=== PATIENT | male | born 1995 | race Caucasian/White ===

== ENCOUNTER 2017-07-24 17:20 | Emergency (ER) | payer SELFPAY ==
[~2017-07-24] VITALS: Ht 167.6 cm; Wt 82.0 kg
[2017-07-25 04:34] VITALS: BP 120/75
== END 2017-07-25 04:50 | disposition home or self-care (01) ==
LOC: ER 18:11
DX: R07.81 Pleurodynia (principal); R03.0 Elevated blood-pressure reading, without diagnosis of hypertension; F15.10 Other stimulant abuse, uncomplicated; J45.909 Unspecified asthma, uncomplicated; F41.9 Anxiety disorder, unspecified; F12.10 Cannabis abuse, uncomplicated
CPT/HCPCS: 71010; 93005; 99284; Z7610

== ENCOUNTER 2020-03-21 20:26 | Emergency (ER) | payer SELFPAY ==
[~2020-03-21] VITALS: Ht 167.6 cm; Wt 95.0 kg
[2020-03-21] MEDS ORDERED: SODIUM CHLORIDE 0.9% 1,000 ML IV ONE (21:51)
[2020-03-21] MEDS ORDERED: ONDANSETRON HCL 4MG/2ML INJ IV ONE (22:00)
[2020-03-21 22:50] LABS: BASOPHILS % 0.7 % (0.0-2.0); EOSINOPHILS % 0.2 % (0.0-5.0); HEMATOCRIT. 45.9 % (42.0-52.0); HEMOGLOBIN. 15.9 g/dL (14.0-18.0); LYMPHOCYTES % 20.7 % (20.0-50.0); MEAN CORPUSCULAR HEMOGLOBIN 30.7 pg (28.0-32.0); MEAN CORPUSCULAR VOLUME 88.6 fL (80.0-94.0); MEAN PLATELET VOLUME 8.1 fl (7.4-10.4); MONOCYTES % 8.4 % (2.0-8.0); PLATELET 245 x1000/uL (130-400); RED BLOOD CELL COUNT 5.17 mill/uL (4.7-6.1); RED CELL DISTRIBUTION WIDTH 13.3 % (11.6-14.6)
[2020-03-21 22:54] LABS: CHLORIDE 106 mEq/L (98-107)
[2020-03-21 23:44] VITALS: BP 125/74
== END 2020-03-21 23:45 | disposition home or self-care (01) ==
LOC: ER 20:26
DX: T67.5XXA Heat exhaustion, unspecified, initial encounter (principal); Z90.49 Acquired absence of other specified parts of digestive tract; X58.XXXA Exposure to other specified factors, initial encounter; Y93.89 Activity, other specified; Y92.89 Other specified places as the place of occurrence of the external cause
CPT/HCPCS: 36415; 80053; 85025; 93005; 96361; 96374; 99284; J2405; J7030

== ENCOUNTER 2020-05-19 11:38 | Emergency (ER) | payer MEDICAID ==
[~2020-05-19] VITALS: Ht 167.6 cm; Wt 95.0 kg
[2020-05-19] MEDS ORDERED: IBUPROFEN 600MG TABLET PO ONE (12:15)
[2020-05-19] MEDS ORDERED: ONDANSETRON 4MG ODT PO ONE (12:15)
[2020-05-19 13:08] VITALS: BP 122/86
== END 2020-05-19 14:56 | disposition home or self-care (01) ==
LOC: ER 11:38
DX: J45.909 Unspecified asthma, uncomplicated (principal); Z90.49 Acquired absence of other specified parts of digestive tract; F12.10 Cannabis abuse, uncomplicated; J06.9 Acute upper respiratory infection, unspecified; Z20.828 Contact with and (suspected) exposure to other viral communicable diseases
CPT/HCPCS: 71045; 87070; 87430; 93005; 99285; C9803; U0003

== ENCOUNTER 2020-05-23 20:10 | Emergency (ER) | payer MEDICAID ==
[~2020-05-23] VITALS: Ht 167.6 cm; Wt 95.0 kg
[2020-05-23] MEDS ORDERED: ALBUTEROL (0.083%) 2.5MG/3ML NEB HHN STA (20:43)
[2020-05-23] MEDS ORDERED: IPRATROPIUM BROMIDE (0.02%) 0.5MG/2.5ML NEB HHN STA (20:43)
[2020-05-23] MEDS ORDERED: PREDNISONE 20MG TABLET PO STA (20:43)
[2020-05-23 22:30] VITALS: BP 124/85
== END 2020-05-23 22:35 | disposition home or self-care (01) ==
LOC: ER 20:25
DX: J45.901 Unspecified asthma with (acute) exacerbation (principal); F12.10 Cannabis abuse, uncomplicated
CPT/HCPCS: 94640; 99283; J7512; Z7610

== ENCOUNTER 2020-08-22 21:49 | Emergency (ER) | payer MEDICAID ==
[~2020-08-22] VITALS: Ht 167.6 cm; Wt 95.0 kg
[2020-08-22] MEDS ORDERED: ONDANSETRON HCL 4MG/2ML INJ IV STA (22:41)
[2020-08-22] MEDS ORDERED: KETOROLAC 30MG/ML VIAL IV STA (22:41)
[2020-08-22] MEDS ORDERED: ACETAMINOPHEN 325MG TABLET PO STA (22:41)
[2020-08-22] MEDS ORDERED: SODIUM CHLORIDE 0.9% 1,000 ML IV ONE (22:45)
[2020-08-22 23:25] LABS: CHLORIDE 105 mEq/L (98-107)
[2020-08-22 23:35] LABS: HEMATOCRIT. 43.1 % (42.0-52.0); HEMOGLOBIN. 15.1 g/dL (14.0-18.0); MEAN CORPUSCULAR HEMOGLOBIN 30.4 pg (28.0-32.0); MEAN CORPUSCULAR VOLUME 86.5 fL (80.0-94.0); MEAN PLATELET VOLUME 8.3 fl (7.4-10.4); PLATELET 212 x1000/uL (130-400); RED BLOOD CELL COUNT 4.98 mill/uL (4.7-6.1); RED CELL DISTRIBUTION WIDTH 13.2 % (11.6-14.6)
[2020-08-23 00:14] LABS: PLATELET ESTIMATE NORMAL
[2020-08-23] MEDS ORDERED: ONDA4TAB11 PO (00:42)
[2020-08-23 01:04] VITALS: BP 123/77
== END 2020-08-23 01:05 | disposition home or self-care (01) ==
LOC: ER 21:49
DX: B34.9 Viral infection, unspecified (principal); Z20.822 Contact with and (suspected) exposure to COVID-19; F12.10 Cannabis abuse, uncomplicated; Z90.49 Acquired absence of other specified parts of digestive tract
CPT/HCPCS: 36415; 71045; 80053; 85025; 93005; 96361; 96374; 96375; 99284; C9803; J1885; J2405; J7030; U0003

== ENCOUNTER 2020-09-07 14:25 | Emergency (ER) | payer MEDICAID ==
[~2020-09-07] VITALS: Ht 167.6 cm; Wt 95.5 kg
[~2020-09-07 14:25] MED LIST: ONDA4TAB11 PO
[2020-09-07] MEDS ORDERED: IBUPROFEN 600MG TABLET PO NR (15:30)
[2020-09-07] MEDS ORDERED: IBUP-2029 MT (15:32)
[2020-09-07 15:40] VITALS: BP 132/70
== END 2020-09-07 15:41 | disposition home or self-care (01) ==
LOC: ER 14:34
DX: U07.1 COVID-19 (principal); G93.3 Postviral and related fatigue syndromes; R03.0 Elevated blood-pressure reading, without diagnosis of hypertension; F12.90 Cannabis use, unspecified, uncomplicated
CPT/HCPCS: 71045; 87635; 99283

== ENCOUNTER 2020-09-19 16:55 | Emergency (ER) | payer MEDICAID ==
[~2020-09-19] VITALS: Ht 167.6 cm; Wt 70.0 kg
[~2020-09-19 16:55] MED LIST changes: +IBUP-2029 MT
[2020-09-19 16:58] VITALS: BP 122/84
[2020-09-19] MEDS ORDERED: ALBU18HF2 IH (17:16)
== END 2020-09-19 17:23 | disposition home or self-care (01) ==
LOC: ER 17:07
DX: J45.901 Unspecified asthma with (acute) exacerbation (principal); Z86.19 Personal history of other infectious and parasitic diseases; F12.10 Cannabis abuse, uncomplicated
CPT/HCPCS: 99282

== ENCOUNTER 2020-11-04 09:41 | Emergency (ER) | payer SELFPAY ==
[~2020-11-04] VITALS: Ht 167.6 cm; Wt 96.0 kg
[~2020-11-04 09:41] MED LIST changes: +ALBU18HF2 IH
[2020-11-04] MEDS ORDERED: METOCLOPRAMIDE HCL 10MG/2ML VIAL IV ONE (10:45)
[2020-11-04] MEDS ORDERED: SODIUM CHLORIDE 0.9% 1,000 ML IV ONE (10:45)
[2020-11-04 10:50] LABS: BASOPHILS % 0.3 % (0.0-2.0); EOSINOPHILS % 1.5 % (0.0-5.0); HEMATOCRIT. 48.9 % (42.0-52.0); HEMOGLOBIN. 17.1 g/dL (14.0-18.0); LYMPHOCYTES % 37.7 % (20.0-50.0); MEAN CORPUSCULAR HEMOGLOBIN 30.1 pg (28.0-32.0); MEAN CORPUSCULAR VOLUME 86.1 fL (80.0-94.0); MONOCYTES % 13.6 % (2.0-8.0); NEUTROPHILS % 46.9 % (40.0-76.0); PLATELET 254 x1000/uL (130-400); RED BLOOD CELL COUNT 5.68 mill/uL (4.7-6.1); RED CELL DISTRIBUTION WIDTH 13.3 % (11.6-14.6)
[2020-11-04 10:57] LABS: CHLORIDE 101 mEq/L (98-107)
[2020-11-04 11:00] LABS: ETHANOL BLOOD < 10 mg/dL
[2020-11-04 12:08] LABS: COLOR URINE YELLOW (YELLOW); KETONES URINE 1+ (NEGATIVE); LEUKOCYTE ESTERASE URINE NEGATIVE (NEGATIVE); NITRITE URINE NEGATIVE (NEGATIVE); OCCULT BLOOD URINE NEGATIVE (NEGATIVE); PROTEIN URINE NEGATIVE (NEGATIVE); SPECIFIC GRAVITY URINE 1.012 (1.005-1.030); UROBILINOGEN URINE 0.2 E.U./dL (0.2-1.0)
[2020-11-04 12:09] LABS: CLARITY URINE CLEAR (CLEAR)
[2020-11-04 12:30] LABS: *AMPHETAMINES SCREEN URINE PRESUMTIVE POSITIVE (NEGATIVE); *BARBITURATES SCREEN URINE NEGATIVE (NEGATIVE); *BENZODIAZEPINES SCREEN URINE NEGATIVE (NEGATIVE)
[2020-11-04 12:31] LABS: *COCAINE SCREEN URINE NEGATIVE (NEGATIVE); CANNABINOID URINE SCREEN PRESUMTIVE POSITIVE (NEGATIVE); METHADONE URINE SCREEN NEGATIVE (NEGATIVE); OPIATES URINE SCREEN NEGATIVE (NEGATIVE); PHENCYCLIDINE URINE SCREEN NEGATIVE (NEGATIVE)
[2020-11-04 13:57] VITALS: BP 136/81
== END 2020-11-04 14:21 | disposition home or self-care (01) ==
LOC: ER 09:41
DX: R07.89 Other chest pain (principal); R00.2 Palpitations; R42 Dizziness and giddiness; F15.10 Other stimulant abuse, uncomplicated; F12.10 Cannabis abuse, uncomplicated; J45.909 Unspecified asthma, uncomplicated
CPT/HCPCS: 36415; 71045; 80053; 80305; 80307; 80320; 80329; 81003; 83880; 84484; 85025; 93005; 96361; 96374; 99285; J2765; J7030; G0480

== ENCOUNTER 2021-01-22 13:40 | Emergency (ER) | payer SELFPAY ==
[~2021-01-22] VITALS: Ht 167.6 cm; Wt 89.0 kg
[2021-01-22 14:12] VITALS: BP 123/65
== END 2021-01-22 14:34 | disposition home or self-care (01) ==
LOC: ER 13:40
DX: R51.9 Headache, unspecified (principal); F12.10 Cannabis abuse, uncomplicated; J45.909 Unspecified asthma, uncomplicated; Z90.49 Acquired absence of other specified parts of digestive tract
CPT/HCPCS: 99281

== ENCOUNTER 2021-03-01 20:52 | Emergency (ER) | payer SELFPAY ==
[~2021-03-01] VITALS: Ht 167.6 cm; Wt 86.0 kg
[2021-03-02] MEDS ORDERED: ALBU6.7H9 INH (00:54)
[2021-03-02 01:05] VITALS: BP 130/87
== END 2021-03-02 01:09 | disposition home or self-care (01) ==
LOC: ER 20:52
DX: U07.1 COVID-19 (principal); R07.89 Other chest pain; J45.909 Unspecified asthma, uncomplicated; F12.10 Cannabis abuse, uncomplicated
CPT/HCPCS: 71045; 93005; 99283

== ENCOUNTER 2021-03-05 14:16 | Emergency (ER) | payer SELFPAY ==
[~2021-03-05] VITALS: Ht 167.6 cm; Wt 88.0 kg
[~2021-03-05 14:16] MED LIST changes: +ALBU6.7H9 INH
[2021-03-05 14:20] VITALS: BP 119/73
[2021-03-05] MEDS ORDERED: ALBUTEROL 6.7GM HFA INHALER ORI ONE (15:00)
== END 2021-03-05 16:05 | disposition home or self-care (01) ==
LOC: ER 14:16
DX: R05 Cough (principal); J45.909 Unspecified asthma, uncomplicated; F12.10 Cannabis abuse, uncomplicated; Z79.899 Other long term (current) drug therapy
CPT/HCPCS: 71045; 99283

== ENCOUNTER 2021-04-19 21:36 | Emergency (ER) | payer SELFPAY | END 2021-04-19 22:43 | disposition left against medical advice (07) | LOC: ER 21:36 | DX: Z53.21 Procedure and treatment not carried out due to patient leaving prior to being seen by health care provider (principal) ==

== ENCOUNTER 2021-08-16 09:56 | Emergency (ER) | payer SELFPAY ==
[~2021-08-16] VITALS: Ht 167.6 cm; Wt 93.9 kg
[2021-08-16] MEDS ORDERED: ONDANSETRON 4MG ODT PO STA (10:21)
[2021-08-16 11:22] LABS: BASOPHILS % 0.2 % (0.0-2.0); EOSINOPHILS % 0.9 % (0.0-5.0); HEMATOCRIT. 46.9 % (42.0-52.0); HEMOGLOBIN. 16.5 g/dL (14.0-18.0); LYMPHOCYTES % 19.6 % (20.0-50.0); MEAN CORPUSCULAR HEMOGLOBIN 30.5 pg (28.0-32.0); MEAN CORPUSCULAR VOLUME 86.7 fL (80.0-94.0); MEAN PLATELET VOLUME 7.8 fl (7.4-10.4); MONOCYTES % 9.2 % (2.0-8.0); NEUTROPHILS % 70.1 % (40.0-76.0); PLATELET 274 x1000/uL (130-400); RED CELL DISTRIBUTION WIDTH 13.4 % (11.6-14.6)
[2021-08-16] MEDS ORDERED: ONDA4TAB5 PO (11:22)
[2021-08-16 11:23] LABS: CHLORIDE 105 mEq/L (98-107)
[2021-08-16] MEDS ORDERED: TOPUD PO (11:24)
[2021-08-16 11:51] VITALS: BP 110/74
== END 2021-08-16 12:13 | disposition home or self-care (01) ==
LOC: ER 09:56
DX: R50.9 Fever, unspecified (principal); R11.2 Nausea with vomiting, unspecified; Z20.822 Contact with and (suspected) exposure to COVID-19; R10.84 Generalized abdominal pain
CPT/HCPCS: 36415; 80053; 83690; 85025; 87426; 99283; Q0162

== ENCOUNTER 2021-10-25 06:33 | Emergency (ER) | payer SELFPAY ==
[~2021-10-25] VITALS: Ht 167.6 cm; Wt 92.0 kg
[~2021-10-25 06:33] MED LIST changes: +ONDA4TAB5 PO; +TOPUD PO
[2021-10-25] MEDS ORDERED: ONDANSETRON HCL 4MG/2ML INJ IV STA (07:23)
[2021-10-25] MEDS ORDERED: MORPHINE SULFATE 4 MG/ML CPJ (NOT FOR IM USE) IV ONE (07:30)
[2021-10-25] MEDS ORDERED: SODIUM CHLORIDE 0.9% 1,000 ML IV ONE (07:30)
[2021-10-25 07:51] VITALS: BP 116/78
[2021-10-25 08:08] LABS: BASOPHILS % 0.3 % (0.0-2.0); EOSINOPHILS % 0.5 % (0.0-5.0); HEMATOCRIT. 49.4 % (42.0-52.0); LYMPHOCYTES % 16.8 % (20.0-50.0); MEAN CORPUSCULAR HEMOGLOBIN 30.3 pg (28.0-32.0); MEAN CORPUSCULAR VOLUME 88.1 fL (80.0-94.0); MEAN PLATELET VOLUME 8.2 fl (7.4-10.4); MONOCYTES % 10.5 % (2.0-8.0); NEUTROPHILS % 71.9 % (40.0-76.0); PLATELET 258 x1000/uL (130-400); RED BLOOD CELL COUNT 5.61 mill/uL (4.7-6.1)
[2021-10-25 08:09] LABS: CHLORIDE 109 mEq/L (98-107)
[2021-10-25 08:50] LABS: CLARITY URINE CLEAR (CLEAR); COLOR URINE YELLOW (YELLOW); KETONES URINE TRACE (NEGATIVE); LEUKOCYTE ESTERASE URINE NEGATIVE (NEGATIVE); NITRITE URINE NEGATIVE (NEGATIVE); OCCULT BLOOD URINE NEGATIVE (NEGATIVE); PH URINE 5.5 (4.5-8.0); PROTEIN URINE TRACE (NEGATIVE); SPECIFIC GRAVITY URINE 1.034 (1.005-1.030); UROBILINOGEN URINE 0.2 E.U./dL (0.2-1.0)
[2021-10-25] MEDS ORDERED: KETOROLAC 30MG/ML VIAL IV ONE (09:00)
[2021-10-25] MEDS ORDERED: ONDA4TAB5 PO (10:21)
[2021-10-25] MEDS ORDERED: TOPUD PO (10:21)
== END 2021-10-25 10:54 | disposition home or self-care (01) ==
LOC: ER 06:33
DX: R10.9 Unspecified abdominal pain (principal); R11.2 Nausea with vomiting, unspecified; R19.7 Diarrhea, unspecified; K92.1 Melena; R42 Dizziness and giddiness; R68.83 Chills (without fever)
CPT/HCPCS: 36415; 74176; 80053; 81003; 83690; 85025; 86850; 86900; 86901; 93005; 96361; 96374; 96375; 99285; J1885; J2270; J2405; J7030

== ENCOUNTER 2021-12-28 17:55 | Emergency (ER) | payer MEDICAID ==
[~2021-12-28] VITALS: Ht 167.6 cm; Wt 94.0 kg
[2021-12-28 18:46] VITALS: BP 110/69
[2021-12-28] MEDS ORDERED: HYDR-4001 PO (18:50)
[2021-12-28 21:34] LABS: BASOPHILS % 0.4 % (0.0-2.0); EOSINOPHILS % 2.8 % (0.0-5.0); HEMATOCRIT. 42.8 % (42.0-52.0); HEMOGLOBIN. 14.7 g/dL (14.0-18.0); LYMPHOCYTES % 33.3 % (20.0-50.0); MEAN CORPUSCULAR HEMOGLOBIN 30.1 pg (28.0-32.0); MEAN CORPUSCULAR VOLUME 87.8 fL (80.0-94.0); MEAN PLATELET VOLUME 8.1 fl (7.4-10.4); MONOCYTES % 12.9 % (2.0-8.0); NEUTROPHILS % 50.6 % (40.0-76.0); PLATELET 289 x1000/uL (130-400); RED BLOOD CELL COUNT 4.88 mill/uL (4.7-6.1); RED CELL DISTRIBUTION WIDTH 13.3 % (11.6-14.6)
[2021-12-28 21:37] LABS: CHLORIDE 107 mEq/L (98-107)
== END 2021-12-28 23:23 | disposition home or self-care (01) ==
LOC: ER 17:55
DX: R10.32 Left lower quadrant pain (principal); F12.10 Cannabis abuse, uncomplicated; J45.909 Unspecified asthma, uncomplicated; Z90.49 Acquired absence of other specified parts of digestive tract
CPT/HCPCS: 36415; 74176; 80053; 85025; 99284

== ENCOUNTER 2022-02-02 19:38 | Emergency (ER) | payer SELFPAY ==
[~2022-02-02] VITALS: Ht 167.6 cm; Wt 95.0 kg
[~2022-02-02 19:38] MED LIST changes: +HYDR-4001 PO
[2022-02-02 19:40] VITALS: BP 126/81
== END 2022-02-02 23:00 | disposition left against medical advice (07) ==
LOC: ER 19:38
DX: Z53.21 Procedure and treatment not carried out due to patient leaving prior to being seen by health care provider (principal)

== ENCOUNTER 2022-03-05 08:51 | Emergency (ER) | payer SELFPAY ==
[~2022-03-05] VITALS: Ht 167.6 cm; Wt 94.0 kg
[2022-03-05] MEDS ORDERED: KETOROLAC 60MG/2ML VIAL IM ONE (10:15)
[2022-03-05] MEDS ORDERED: NAPR-681 MT (11:12)
[2022-03-05 11:25] VITALS: BP 127/55
== END 2022-03-05 11:26 | disposition home or self-care (01) ==
LOC: ER 09:33
DX: M25.512 Pain in left shoulder (principal); J45.909 Unspecified asthma, uncomplicated; F12.10 Cannabis abuse, uncomplicated; Z90.49 Acquired absence of other specified parts of digestive tract; X50.0XXA Overexertion from strenuous movement or load, initial encounter; Y93.89 Activity, other specified; Y92.89 Other specified places as the place of occurrence of the external cause; Y99.8 Other external cause status
CPT/HCPCS: 73030; 96372; 99283; J1885

== ENCOUNTER 2022-06-06 20:14 | Emergency (ER) | payer SELFPAY ==
[~2022-06-06] VITALS: Ht 167.6 cm; Wt 91.0 kg
[~2022-06-06 20:14] MED LIST changes: +ALBU6.7H3 INH; -ALBU6.7H9 INH; +NAPR-681 MT
[2022-06-06 20:17] VITALS: BP 129/89
[2022-06-06] MEDS ORDERED: ALBUTEROL (0.083%) 2.5MG/3ML NEB HHN STA (21:56)
[2022-06-06] MEDS ORDERED: IPRATROPIUM BROMIDE (0.02%) 0.5MG/2.5ML NEB HHN STA (21:56)
[2022-06-06] MEDS ORDERED: PREDNISONE 20MG TABLET PO STA (21:56)
[2022-06-06] MEDS ORDERED: P20 MT (23:46)
[2022-06-06] MEDS ORDERED: ALBU90AE INH (23:46)
== END 2022-06-06 23:45 | disposition home or self-care (01) ==
LOC: ER 20:27
DX: J06.9 Acute upper respiratory infection, unspecified (principal); J45.901 Unspecified asthma with (acute) exacerbation; Z20.822 Contact with and (suspected) exposure to COVID-19
CPT/HCPCS: 71045; 87426; 94640; 99284; C9803; J7512; Z7610

== ENCOUNTER 2022-06-08 18:43 | Emergency (ER) | payer MEDICAID ==
[~2022-06-08] VITALS: Ht 198.1 cm; Wt 95.6 kg
[~2022-06-08 18:43] MED LIST changes: +ALBU90AE INH; +P20 MT
[2022-06-08] MEDS ORDERED: ALBUTEROL (0.083%) 2.5MG/3ML NEB HHN STA (22:58)
[2022-06-08] MEDS ORDERED: IPRATROPIUM BROMIDE (0.02%) 0.5MG/2.5ML NEB HHN STA (22:58)
[2022-06-08] MEDS ORDERED: PREDNISONE 20MG TABLET PO STA (22:58)
[2022-06-09] MEDS ORDERED: ALBU6.7H3 INH (00:28)
[2022-06-09 01:00] VITALS: BP 124/78
== END 2022-06-09 01:02 | disposition home or self-care (01) ==
LOC: ER 18:48
DX: R05.9 Cough, unspecified (principal); J45.909 Unspecified asthma, uncomplicated; F12.10 Cannabis abuse, uncomplicated; Z90.49 Acquired absence of other specified parts of digestive tract
CPT/HCPCS: 71045; 94640; 99283; J7512; Z7610

== ENCOUNTER 2022-10-10 08:40 | Emergency (ER) | payer SELFPAY ==
[~2022-10-10] VITALS: Ht 170.2 cm; Wt 91.0 kg
[2022-10-10 08:44] VITALS: BP 133/97
[2022-10-10] MEDS ORDERED: ONDANSETRON HCL 4MG/2ML INJ IV STA (11:11)
[2022-10-10] MEDS ORDERED: SODIUM CHLORIDE 0.9% 1,000 ML IV ONE (11:15)
[2022-10-10] MEDS ORDERED: ACETAMINOPHEN 325MG TABLET PO ONE (11:15)
[2022-10-10 11:54] LABS: HEMATOCRIT. 52.8 % (42.0-52.0); HEMOGLOBIN. 18.1 g/dL (14.0-18.0); MEAN CORPUSCULAR HEMOGLOBIN 30.4 pg (28.0-32.0); MEAN CORPUSCULAR VOLUME 88.6 fL (80.0-94.0); MEAN PLATELET VOLUME 8.4 fl (7.4-10.4); PLATELET 300 x1000/uL (130-400); RED BLOOD CELL COUNT 5.96 mill/uL (4.7-6.1); RED CELL DISTRIBUTION WIDTH 13.7 % (11.6-14.6)
[2022-10-10 11:57] LABS: CHLORIDE 107 mEq/L (98-107)
[2022-10-10 12:01] LABS: INR 1.1; PROTHROMBIN TIME 11.5 sec (9.6-11.0)
[2022-10-10 12:03] LABS: CLARITY URINE CLOUDY (CLEAR); COLOR URINE DARK YELLOW (YELLOW); KETONES URINE 2+ (NEGATIVE); LEUKOCYTE ESTERASE URINE TRACE (NEGATIVE); NITRITE URINE NEGATIVE (NEGATIVE); OCCULT BLOOD URINE NEGATIVE (NEGATIVE); PROTEIN URINE 2+ (NEGATIVE); SPECIFIC GRAVITY URINE 1.035 (1.005-1.030)
[2022-10-10 12:29] LABS: PLATELET ESTIMATE NORMAL
[2022-10-10 12:43] LABS: *AMPHETAMINES SCREEN URINE PRESUMTIVE POSITIVE (NEGATIVE); *BARBITURATES SCREEN URINE NEGATIVE (NEGATIVE); *BENZODIAZEPINES SCREEN URINE NEGATIVE (NEGATIVE); *COCAINE SCREEN URINE NEGATIVE (NEGATIVE); CANNABINOID URINE SCREEN PRESUMTIVE POSITIVE (NEGATIVE); METHADONE URINE SCREEN NEGATIVE (NEGATIVE); OPIATES URINE SCREEN NEGATIVE (NEGATIVE); PHENCYCLIDINE URINE SCREEN NEGATIVE (NEGATIVE)
[2022-10-10] MEDS ORDERED: ACET-2708 MT (16:16)
[2022-10-10] MEDS ORDERED: ONDA4TAB50 MT (16:16)
== END 2022-10-10 16:47 | disposition home or self-care (01) ==
LOC: ER 08:40
DX: R10.84 Generalized abdominal pain (principal); J45.909 Unspecified asthma, uncomplicated; F12.10 Cannabis abuse, uncomplicated; Z90.49 Acquired absence of other specified parts of digestive tract
CPT/HCPCS: 36415; 76700; 80053; 80305; 81003; 83690; 85025; 85610; 96361; 96374; 99285; J2405; J7030; Z7610

== ENCOUNTER 2023-03-05 11:13 | Emergency (ER) | payer SELFPAY ==
[~2023-03-05] VITALS: Ht 167.6 cm; Wt 91.0 kg
[~2023-03-05 11:13] MED LIST changes: +ACET-2708 MT; +ONDA4TAB50 MT
[2023-03-05 11:32] VITALS: BP 110/79; PULSE 78; RESP 18; TEMP 98.1; O2SAT 98
[2023-03-05 11:52] LABS: BASOPHILS % 0.2 % (0.0-2.0); EOSINOPHILS % 1.1 % (0.0-5.0); HEMATOCRIT. 44.5 % (42.0-52.0); HEMOGLOBIN. 15.3 g/dL (14.0-18.0); LYMPHOCYTES % 16.8 % (20.0-50.0); MEAN CORPUSCULAR HEMOGLOBIN 30.7 pg (28.0-32.0); MEAN CORPUSCULAR HGB CONC 34.4 g/dL (31.0-37.0); MEAN CORPUSCULAR VOLUME 89.3 fL (80.0-94.0); MONOCYTES % 8.4 % (2.0-8.0); NEUTROPHILS % 73.5 % (40.0-76.0); PLATELET 260 x1000/uL (130-400); RED BLOOD CELL COUNT 4.98 mill/uL (4.7-6.1); RED CELL DISTRIBUTION WIDTH 13.5 % (11.6-14.6); WHITE BLOOD COUNT 10.8 x1000/uL (4.5-11.0)
[2023-03-05 11:59] LABS: CHLORIDE 113 mEq/L (98-107); INDEX HEMOLYSI 1 (1-3); INDEX ICTERIC 1 (1-4); INDEX LIPEMIC 1 (1-3); POTASSIUM 3.9 mEq/L (3.5-5.1); SODIUM 139 mEq/L (136-145)
[2023-03-05 12:06] LABS: ALANINE AMINOTRANSFERASE 178 IU/L (13-61); ASPARTATE AMINOTRANSFERASE 77 IU/L (15-37); BILIRUBIN TOTAL 0.8 mg/dL (0.1-1.0); CALCIUM 8.6 mg/dL (8.5-10.1); CARBON DIOXIDE 24 mEq/L (21-32); CREATININE 0.8 mg/dL (0.6-1.3); GLUCOSE 107 mg/dL (70-105); PROTEIN TOTAL 7.5 g/dL (6.0-8.3); UREA NITROGEN BLOOD 19 mg/dL (7-21)
[2023-03-05 14:17] LABS: CLARITY URINE CLOUDY (CLEAR); COLOR URINE YELLOW (YELLOW); GLUCOSE URINE NEGATIVE (NEGATIVE); KETONES URINE NEGATIVE (NEGATIVE); LEUKOCYTE ESTERASE URINE NEGATIVE (NEGATIVE); NITRITE URINE NEGATIVE (NEGATIVE); OCCULT BLOOD URINE NEGATIVE (NEGATIVE); PH URINE 5.5 (4.5-8.0); PROTEIN URINE TRACE (NEGATIVE); SPECIFIC GRAVITY URINE 1.036 (1.005-1.030); UROBILINOGEN URINE 0.2 E.U./dL (0.2-1.0)
[2023-03-05 14:48] LABS: AMORPHOUS SEDIMENT URINE 3+ /lpf; SQUAMOUS EPITHELIAL CELL URINE NONE SEEN /lpf (RARE/1+)
[2023-03-05 14:49] LABS: MUCUS URINE TRACE /lpf (NONE/TRACE)
[2023-03-05 14:50] LABS: BACTERIA URINE 1+; RBC URINE NONE SEEN /hpf (0-2); WBC URINE NONE SEEN /hpf (0-2)
== END 2023-03-05 16:57 | disposition left against medical advice (07) ==
LOC: ER 11:54
DX: Z53.21 Procedure and treatment not carried out due to patient leaving prior to being seen by health care provider (principal)
CPT/HCPCS: 36415; 80053; 81003; 85025; 99281

== ENCOUNTER 2023-06-03 16:09 | Emergency (ER) | payer SELFPAY ==
[2023-06-03 16:31] VITALS: PULSE 108; RESP 20
== END 2023-06-03 17:11 | disposition left against medical advice (07) ==
LOC: ER 16:09
DX: R53.1 Weakness (principal); Z53.21 Procedure and treatment not carried out due to patient leaving prior to being seen by health care provider
CPT/HCPCS: 99281

== ENCOUNTER 2023-06-06 16:43 | Emergency (ER) | payer SELFPAY ==
[~2023-06-06] VITALS: Ht 172.7 cm; Wt 100.0 kg
[2023-06-06 16:45] VITALS: BP 133/90; TEMP 98.5; O2SAT 99
[2023-06-06 17:53] VITALS: PULSE 88; RESP 16
== END 2023-06-06 18:28 | disposition home or self-care (01) ==
LOC: ER 16:43
DX: B34.9 Viral infection, unspecified (principal); J45.909 Unspecified asthma, uncomplicated; F12.90 Cannabis use, unspecified, uncomplicated; Z90.49 Acquired absence of other specified parts of digestive tract
CPT/HCPCS: 99281